=== PATIENT | female | born 1940 | race Caucasian/White ===

== ENCOUNTER 2016-10-03 11:19 | Outpatient (CLI) | payer OTHER, MEDICARE ==
--- NOTE | 2016-10-03 13:29 | DIAGNOSTIC IMAGING REPORT ---
PROCEDURE: CT ABD/PELVIS WITH CONTRAST CLINICAL INDICATION: Lower abdominal pain, initial encounter. TECHNIQUE: 125 ml of Isovue 300 were injected intravenously and axial images were obtained of the entire abdomen and pelvis with sagittal and coronal reformations. COMPARISON: None. FINDINGS: ABDOMEN: Right middle lobe scarring. Mild cardiomegaly. 2.2 cm cyst in the tail of the pancreas. Liver, gallbladder, spleen, adrenal glands and kidneys are normal. Moderate atherosclerosis of the aorta. Mild hiatal hernia. Mild to moderate diverticulosis of the ascending, transverse and descending colon. PELVIS: Severe sigmoid diverticulosis with wall thickening and inflammatory changes of the proximal sigmoid colon. No evidence of an abscess or free air. Appendectomy and hysterectomy. Bladder is unremarkable. Mild degenerative changes of the spine. IMPRESSION: 1. Sigmoid diverticulitis without abscess or free air 2. Mild to moderate diverticulosis from the ascending to the descending colon. 3. 2.2 cm pancreatic tail thin-walled cystic mass. This may represent a pseudocyst or possibly a cystic neoplasm. 4. Hiatal hernia 5. Results discussed with Dr. Tellez All CT scans at this facility use dose modulation, iterative reconstruction, and/or weight-based dosing when appropriate to reduce radiation dose to as low as reasonably achievable.
== END 2016-10-03 23:00 ==
LOC: CT SRH 11:19
DX: R10.9 Unspecified abdominal pain (principal); K57.32 Diverticulitis of large intestine without perforation or abscess without bleeding; K86.9 Disease of pancreas, unspecified; K44.9 Diaphragmatic hernia without obstruction or gangrene; I10 Essential (primary) hypertension; E78.5 Hyperlipidemia, unspecified
CPT/HCPCS: 90074; 90100; 92235; 95059